=== PATIENT | female | born 1985 ===

== ENCOUNTER 2022-11-12 07:56 | Day surgery (SDC) | payer OTHER ==
[~2022-11-12 07:56] MED LIST: LIPITOR20 MG PO
[2022-11-12] MEDS ORDERED: MORGIDOX100 MG PO (11:57)
[2022-11-12] MEDS ORDERED: NAPR500T14 PO (11:57)
== END 2022-11-12 16:05 | disposition home or self-care (01) ==
LOC: CIR.AMB 07:56
PROVIDERS: ATTEND Obstetrics & Gynecology
DX: N84.0 Polyp of corpus uteri (principal); D25.0 Submucous leiomyoma of uterus; N92.0 Excessive and frequent menstruation with regular cycle; Z20.822 Contact with and (suspected) exposure to COVID-19; N92.1 Excessive and frequent menstruation with irregular cycle